=== PATIENT | male | born 1985 | race Caucasian/White ===

== ENCOUNTER 2020-02-18 15:49 | Emergency (ER) | payer BC, OTHER ==
[~2020-02-18] VITALS: Ht 170.2 cm; Wt 84.8 kg
[2020-02-18 15:49] VITALS: BP 138/85
[2020-02-18] MEDS ORDERED: predniSONE 20 MG TAB PO ONE (16:30)
[2020-02-18] MEDS ORDERED: EPIP0.3I2 IM (16:32)
[2020-02-18] MEDS ORDERED: PRED20TA PO (16:32)
== END 2020-02-18 16:40 | disposition home or self-care (01) ==
LOC: M ED 15:49
DX: T63.441A Toxic effect of venom of bees, accidental (unintentional), initial encounter (principal); Y92.9 Unspecified place or not applicable; Y99.8 Other external cause status; Y93.9 Activity, unspecified; Z88.0 Allergy status to penicillin